=== PATIENT | female | born 1940 | race African-American/Black ===

== ENCOUNTER 2019-09-04 18:03 | Emergency (ER) | payer OTHER, MEDICARE, BC, SELFPAY ==
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
[2019-09-04 18:04] VITALS: BP 175/102; PULSE 90; RESP 18; TEMP 36.3; O2SAT 98
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
[2019-09-04] MEDS: ACETAMINOPHEN 325 MG TABLET 650 MG PO (18:48)
[2019-09-04 20:16] VITALS: BP 152/85; PULSE 78; RESP 25; O2SAT 95
== END 2019-09-04 20:17 | disposition home or self-care (01) ==
PROVIDERS: Emergency Provider Emergency Medicine
DX: S16.1XXA Strain of muscle, fascia and tendon at neck level, initial encounter (principal); S29.012A Strain of muscle and tendon of back wall of thorax, initial encounter; S09.90XA Unspecified injury of head, initial encounter; M47.812 Spondylosis without myelopathy or radiculopathy, cervical region; V49.50XA Passenger injured in collision with unspecified motor vehicles in traffic accident, initial encounter
CPT/HCPCS: 70450; 72125; 72128; 99284; A9270

== ENCOUNTER 2019-11-16 10:15 | Outpatient (RCR) | payer OTHER, MEDICARE, BC, SELFPAY ==
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
--- NOTE | 2019-11-07 15:20 | PCPTNOTE ---
Patient did not show for appointment this date.
--- NOTE | 2019-11-09 10:22 | PCPTNOTE ---
Patient did not show up for scheduled appointment this date. Called and left a message.
--- NOTE | 2019-11-16 10:41 | PCPTNOTE ---
Patient did not show up for scheduled appointment this date.
--- NOTE | 2019-11-20 10:37 | PCPTNOTE ---
Pt has a new MD order from 11/15/19 requesting therapy to be DC due to pt requesting home health therapy instead. Will plan to DC at this time.
--- NOTE | 2019-11-20 10:37 | PCPTNOTE ---
Admitting Provider: Attending Provider: Lanette Brantley, Patient:Elizabeth Gomez Date of :1940 Discharge Note Patient has not returned for any further treatments since 11/02/2019, therefore she will be discharged at this time. Patient?s initial visit was on 09/22/2019 14:00 and she had a total of 9 visits. Pt has requested outpatient therapy services to be discharged to allow therapy to continue as home health services. The goals have been partially met at this time. Limited progress due to pain. Thank you for referring this patient to [facility]. Please review, sign, date and return this discharge summary LEN. I have been updated about the patient's current status and I agree with discharge from the above service at this time. Referring Physician Date
== END 2019-11-20 14:34 | disposition home or self-care (01) ==
LOC: ANHPT 10:15
PROVIDERS: PCP Family Medicine; Visit Provider Family Medicine
DX: M54.9 Dorsalgia, unspecified (principal)
CPT/HCPCS: 97014; 97110; 97140; 97163; 97530; G0283